=== PATIENT | female | born 1975 | race Hispanic/Latino ===

== ENCOUNTER → 2024-07-04 | Outpatient (CLI) | payer MEDICAID ==
--- NOTE | 2024-07-04 09:49 | HMCIMG ---
MR SHOULDER RIGHT WO HISTORY: Right shoulder pain COMPARISON: None TECHNIQUE: MRI of the right shoulder was performed utilizing multiple pulse sequences in axial, coronal and sagittal planes. Patient was not given contrast through intravenous route. FINDINGS: Subchondral cyst formations are seen of right shoulder. No abnormal signal intensity is seen of the visualized bony structure. Hypertrophic degenerative changes are seen of the acromioclavicular joint. There is downward sloping of acromion in a medial to lateral direction encroaching upon the rotator cuff tendon and muscles. There is rotator cuff tendinosis with partial undersurface tear. Complete tear cannot be completely excluded. Tiny amount of fluid is seen in the subacromial-subdeltoid posterior complex. The glenoid labrum is intact. Bicipital tendon is seen within its groove. No appreciable amount of joint effusion is seen. IMPRESSION: 1. There is rotator cuff tendinosis with partial undersurface tear. Complete tear cannot be completely excluded. Tiny amount of fluid is seen in the subacromial-subdeltoid posterior complex.
== END | disposition home or self-care (01) ==
LOC: RAH 06-22 08:37
PROVIDERS: ATTEND Physical Medicine & Rehabilitation
DX: M75.111 Incomplete rotator cuff tear or rupture of right shoulder, not specified as traumatic (principal); M75.121 Complete rotator cuff tear or rupture of right shoulder, not specified as traumatic; M19.011 Primary osteoarthritis, right shoulder; M25.411 Effusion, right shoulder; M25.811 Other specified joint disorders, right shoulder; M25.511 Pain in right shoulder; M75.41 Impingement syndrome of right shoulder
CPT/HCPCS: 73221